=== PATIENT | male | born 1960 | race African-American/Black ===

== ENCOUNTER 2020-01-16 11:03 | Day surgery (SDC) | payer OTHER, SELFPAY ==
[~2020-01-16] VITALS: Ht 180.3 cm; Wt 127.0 kg
[2020-01-16] MEDS ORDERED: MIDAZOLAM 5 MG/5 ML VIAL ONE (12:33)
[2020-01-16] MEDS ORDERED: fentaNYL citrate 0.05 MG/ML VIAL ONE (12:33)
[2020-01-16] MEDS ORDERED: LIDOCAINE 2% 100 MG/5 ML UJET TP ONE (12:34)
[2020-01-16] MEDS ORDERED: fentaNYL citrate 0.05 MG/ML VIAL IVP ONE (14:35)
== END 2020-01-16 15:10 | disposition home or self-care (01) ==
LOC: MDS 11:03 → MMU 11:42 → MDS 15:10
PROVIDERS: ATTEND Internal Medicine Gastroenterology
DX: Z09 Encounter for follow-up examination after completed treatment for conditions other than malignant neoplasm (principal); D12.3 Benign neoplasm of transverse colon; I10 Essential (primary) hypertension; Z20.828 Contact with and (suspected) exposure to other viral communicable diseases; Z79.899 Other long term (current) drug therapy
CPT/HCPCS: 45385; J3010; U0003; J2250